=== PATIENT | female | born 1980 | race Caucasian/White ===

== ENCOUNTER → 2020-02-04 | Outpatient (CLI) | payer BC | LOC: COL.RAD 06:57 | DX: K21.9 Gastro-esophageal reflux disease without esophagitis (principal); K85.90 Acute pancreatitis without necrosis or infection, unspecified ==

== ENCOUNTER 2021-02-05 07:41 | Emergency (ER) | payer BC ==
[~2021-02-05] VITALS: Ht 157.5 cm; Wt 100.0 kg
[2021-02-05] MEDS ORDERED: GLUCOPHAGE1000 MG PO (07:56)
[2021-02-05] MEDS ORDERED: NORCO 325 MG-51 TAB PO (07:56)
[2021-02-05] MEDS ORDERED: LYRICA 150MG C150 MG PO (07:57)
[2021-02-05] MEDS ORDERED: PROTONIX 40MG T40 MG PO (07:57)
[2021-02-05] MEDS ORDERED: VOLTAREN 75 DR75 MG PO (07:58)
[2021-02-05] MEDS ORDERED: PAXIL 30MG30 MG PO (07:58)
[2021-02-05] MEDS ORDERED: ROBAXIN 75750 MG/TAB PO (08:31)
[2021-02-05] MEDS ORDERED: PERCOCET 325 MG1 TA2 PO (08:31)
[2021-02-05 09:49] VITALS: BP 129/89; PULSE 71; TEMP 98.2
[2021-06-05] MEDS ORDERED: CRESTOR20 MG PO (08:50)
[2021-06-05] MEDS ORDERED: WELLBUTRIN SR150 M1 PO (08:58)
== END 2021-02-05 09:49 | disposition home or self-care (01) ==
LOC: COL.ER 07:41
DX: M54.16 Radiculopathy, lumbar region (principal); F17.200 Nicotine dependence, unspecified, uncomplicated; G89.29 Other chronic pain; Z88.8 Allergy status to other drugs, medicaments and biological substances
CPT/HCPCS: J1100; J1170; J2550

== ENCOUNTER → 2021-02-16 | Outpatient (CLI) | payer BC ==
[~2021-02-16] MED LIST: CRESTOR20 MG PO; GLUCOPHAGE1000 MG PO; LYRICA 150MG C150 MG PO; NORCO 325 MG-51 TAB PO; PAXIL 30MG30 MG PO; PERCOCET 325 MG1 TA2 PO; PROTONIX 40MG T40 MG PO; ROBAXIN 75750 MG/TAB PO; VOLTAREN 75 DR75 MG PO; WELLBUTRIN SR150 M1 PO
== END ==
LOC: MHCPAIN 14:03
DX: M47.817 Spondylosis without myelopathy or radiculopathy, lumbosacral region (principal); M54.16 Radiculopathy, lumbar region; M53.3 Sacrococcygeal disorders, not elsewhere classified; G89.29 Other chronic pain; F17.210 Nicotine dependence, cigarettes, uncomplicated
CPT/HCPCS: G0463

== ENCOUNTER → 2021-02-23 | Outpatient (CLI) | payer BC | LOC: MHCPAIN 11:15 ==

== ENCOUNTER → 2021-02-26 | Outpatient (CLI) | payer BC | LOC: MHCPAIN 08:52 | DX: M47.817 Spondylosis without myelopathy or radiculopathy, lumbosacral region (principal); M54.16 Radiculopathy, lumbar region; M53.3 Sacrococcygeal disorders, not elsewhere classified | CPT/HCPCS: J1100; Q9967 ==

== ENCOUNTER → 2021-03-17 | Outpatient (CLI) | payer SELFPAY | LOC: MHCPAIN 14:18 | DX: M47.816 Spondylosis without myelopathy or radiculopathy, lumbar region (principal); M53.3 Sacrococcygeal disorders, not elsewhere classified; M54.5 Low back pain; G89.29 Other chronic pain | CPT/HCPCS: G0463 ==

== ENCOUNTER → 2021-05-28 | Outpatient (REF) | LOC: ZLAB.WCH 20:17 | DX: Z01.89 Encounter for other specified special examinations (principal) ==

== ENCOUNTER → 2022-01-06 | Outpatient (CLI) | payer OTHER | LOC: MHCPAIN 10:16 | DX: M47.817 Spondylosis without myelopathy or radiculopathy, lumbosacral region (principal); M53.3 Sacrococcygeal disorders, not elsewhere classified; M54.16 Radiculopathy, lumbar region | CPT/HCPCS: G0463 ==

== ENCOUNTER → 2022-01-14 | Outpatient (CLI) | payer OTHER | LOC: MHCPAIN 07:37 | DX: M47.817 Spondylosis without myelopathy or radiculopathy, lumbosacral region (principal); M54.16 Radiculopathy, lumbar region; M53.3 Sacrococcygeal disorders, not elsewhere classified | CPT/HCPCS: J1100; Q9967 ==

== ENCOUNTER → 2022-02-09 | Outpatient (CLI) | payer OTHER | LOC: MHCPAIN 09:51 | DX: M47.817 Spondylosis without myelopathy or radiculopathy, lumbosacral region (principal); M54.50 Low back pain, unspecified; M53.3 Sacrococcygeal disorders, not elsewhere classified | CPT/HCPCS: G0463 ==

== ENCOUNTER → 2022-02-22 | Outpatient (CLI) | payer OTHER | LOC: MHCPAIN 15:33 | DX: M47.817 Spondylosis without myelopathy or radiculopathy, lumbosacral region (principal); M54.50 Low back pain, unspecified; M53.3 Sacrococcygeal disorders, not elsewhere classified ==

== ENCOUNTER → 2022-03-18 | Outpatient (CLI) | payer OTHER | LOC: MHCPAIN 11:08 | DX: M47.817 Spondylosis without myelopathy or radiculopathy, lumbosacral region (principal); M54.50 Low back pain, unspecified; M53.3 Sacrococcygeal disorders, not elsewhere classified | CPT/HCPCS: G0463 ==

== ENCOUNTER → 2022-04-15 | Outpatient (CLI) | payer OTHER | LOC: MHCPAIN 11:59 | DX: M47.817 Spondylosis without myelopathy or radiculopathy, lumbosacral region (principal); M54.50 Low back pain, unspecified; M53.3 Sacrococcygeal disorders, not elsewhere classified | CPT/HCPCS: G0463; J1100; J2250; J3010 ==

== ENCOUNTER → 2022-04-28 | Outpatient (CLI) | payer OTHER | LOC: MHCPAIN 08:12 | DX: M47.817 Spondylosis without myelopathy or radiculopathy, lumbosacral region (principal); M53.3 Sacrococcygeal disorders, not elsewhere classified; M54.16 Radiculopathy, lumbar region | CPT/HCPCS: G0463 ==

== ENCOUNTER → 2022-05-20 | Outpatient (CLI) | payer OTHER | LOC: MHCPAIN 13:03 | DX: M47.817 Spondylosis without myelopathy or radiculopathy, lumbosacral region (principal); M53.3 Sacrococcygeal disorders, not elsewhere classified; M54.16 Radiculopathy, lumbar region | CPT/HCPCS: J1100; Q9967 ==

== ENCOUNTER → 2022-06-09 | Outpatient (CLI) | payer OTHER | LOC: MHCPAIN 08:00 | DX: M54.50 Low back pain, unspecified (principal); M53.3 Sacrococcygeal disorders, not elsewhere classified; E11.9 Type 2 diabetes mellitus without complications; F17.210 Nicotine dependence, cigarettes, uncomplicated; M54.16 Radiculopathy, lumbar region | CPT/HCPCS: G0463 ==

== ENCOUNTER → 2022-07-23 | Outpatient (CLI) | payer OTHER | LOC: COL.RAD 07:03 | DX: M51.27 Other intervertebral disc displacement, lumbosacral region (principal); M48.07 Spinal stenosis, lumbosacral region ==

== ENCOUNTER → 2023-07-26 | Outpatient (CLI) | payer OTHER | LOC: MHCPAIN 10:50 | DX: M79.18 Myalgia, other site (principal); M54.50 Low back pain, unspecified | CPT/HCPCS: J0665; J1040 ==

== ENCOUNTER → 2023-08-24 | Outpatient (CLI) | payer OTHER | LOC: MHCPAIN 14:40 | DX: M47.816 Spondylosis without myelopathy or radiculopathy, lumbar region (principal); M54.50 Low back pain, unspecified; E11.9 Type 2 diabetes mellitus without complications; F17.210 Nicotine dependence, cigarettes, uncomplicated | CPT/HCPCS: G0463 ==

== ENCOUNTER → 2023-11-23 | Outpatient (CLI) | payer OTHER | LOC: MHCPAIN 08:18 | DX: M54.50 Low back pain, unspecified (principal); M96.1 Postlaminectomy syndrome, not elsewhere classified; G89.29 Other chronic pain; E11.9 Type 2 diabetes mellitus without complications; F17.210 Nicotine dependence, cigarettes, uncomplicated | CPT/HCPCS: G0463 ==

== ENCOUNTER → 2024-02-09 | Outpatient (CLI) | payer OTHER ==
[~2024-02-09] MED LIST changes: +Iohexol 300 - 10 ML VIAL ONE; +Lidocaine PF 2% (20 MG/ML) 2 ML VIAL ONE
== END ==
LOC: MHCPAIN 07:49
DX: M54.16 Radiculopathy, lumbar region (principal)
CPT/HCPCS: J1100; Q9967